=== PATIENT | male | born 1975 | race Hispanic/Latino ===

== ENCOUNTER 2025-05-06 17:19 | Observation (INO) | payer OTHER ==
[~2025-05-06] VITALS: Ht 177.8 cm; Wt 163.3 kg
[2025-05-06 17:47] LABS: BASOPHILS % 0.5 % (0.0-1.0); EOSINOPHILS % 3.5 % (0.0-6.0); LYMPHOCYTES % 24.9 % (18.0-39.1); MONOCYTES % 9.4 % (4.4-11.3); NEUTROPHILS % 61.1 % (38.7-80.0); RED CELL DISTRIBUTION WIDTH 12.3 % (11.7-14.4)
[2025-05-06 18:17] LABS: EST GLOMERULAR FILTRATION RATE 56 ML/MIN (>=60)
[2025-05-06] MEDS: HYDROMORPHONE 1MG/1ML INJ IV STA (18:45)
[2025-05-06 19:08] VITALS: PULSE 92; RESP 16; TEMP 98
[2025-05-06] MEDS: HYDROCODONE/APAP 7.5MG-325MG 1 EA TAB PO ONE (19:11)
[2025-05-06] MEDS ORDERED: ONDANSETRON HCL INJ 2MG/ML 2ML 2 MG/ML VIAL IV PRN (19:15)
[2025-05-06] MEDS ORDERED: HYDROCODONE/APAP 7.5MG-325MG 1 EA TAB PO PRN (19:15)
[2025-05-06] MEDS ORDERED: Morphine 4mg INJECTION 4 MG/ML INJ IV PRN (19:15)
[2025-05-06] MEDS: SODIUM CHLORIDE 0.9% 1000ML 1,000 ML IV SCH (19:40)
[2025-05-06 20:10] VITALS: PULSE 87; RESP 18; O2SAT 97
[2025-05-06 21:19] VITALS: BP 100/72; PULSE 89; RESP 18; TEMP 98.1; O2SAT 98
[2025-05-06 21:20] VITALS: BP 100/72; PULSE 89; RESP 18; TEMP 98.1; O2SAT 98
[2025-05-06 21:30] VITALS: BP 100/72; PULSE 89; RESP 18; TEMP 98.1; O2SAT 98
[2025-05-06] MEDS ORDERED: NALOXONE HCL INJ 0.4 MG/ML AMP IV PRN (22:15)
[2025-05-06] MEDS: HYDROMORPHONE 1MG/1ML INJ IV PRN (22:27)
[2025-05-06] MEDS ORDERED: LEVOTHYROXINE50 MCG PO (22:43)
[2025-05-06] MEDS ORDERED: MOTRIN200 MG PO (22:43)
[2025-05-06 23:06] VITALS: BP 135/87; PULSE 75; RESP 18; TEMP 97.9; O2SAT 98
[2025-05-07 03:27] VITALS: BP 115/76; PULSE 60; RESP 18; TEMP 98.1; O2SAT 100
[2025-05-07 06:26] LABS: BASOPHILS % 0.5 % (0.0-1.0); EOSINOPHILS % 3.2 % (0.0-6.0); LYMPHOCYTES % 29.2 % (18.0-39.1); MONOCYTES % 9.7 % (4.4-11.3); NEUTROPHILS % 56.9 % (38.7-80.0); RED CELL DISTRIBUTION WIDTH 12.6 % (11.7-14.4)
[2025-05-07 06:41] LABS: EST GLOMERULAR FILTRATION RATE 61 ML/MIN (>=60)
[2025-05-07 06:57] VITALS: PULSE 95; RESP 20; O2SAT 95
[2025-05-07 08:00] VITALS: BP 105/66; PULSE 67; RESP 20; TEMP 97.7; O2SAT 100
== END 2025-05-07 11:47 | disposition left against medical advice (07) ==
LOC: ER 17:23 → ERHOLD 19:04 → MED/SURG3 21:05
PROVIDERS: ADMIT Internal Medicine; ATTEND Internal Medicine
DX: R07.89 Other chest pain (principal); Z53.29 Procedure and treatment not carried out because of patient's decision for other reasons; M62.82 Rhabdomyolysis; N17.9 Acute kidney failure, unspecified; R73.9 Hyperglycemia, unspecified; I25.10 Atherosclerotic heart disease of native coronary artery without angina pectoris; E03.9 Hypothyroidism, unspecified; E66.01 Morbid (severe) obesity due to excess calories; Z68.43 Body mass index [BMI] 50.0-59.9, adult; M1A.9XX1 Chronic gout, unspecified, with tophus (tophi); Z96.652 Presence of left artificial knee joint
CPT/HCPCS: 36415 ×2; 71045; 80053 ×2; 82550; 83690; 84484 ×2; 85025 ×2; 93005; 94799 ×2; 99284; G0378 ×2; J1171; J7030 ×2

== ENCOUNTER 2025-06-23 01:29 | Emergency (ER) | payer OTHER ==
[~2025-06-23] VITALS: Ht 177.8 cm; Wt 163.3 kg
[~2025-06-23 01:29] MED LIST: LEVOTHYROXINE50 MCG PO; MOTRIN200 MG PO
[2025-06-23 02:12] LABS: BASOPHILS % 0.5 % (0.0-1.0); EOSINOPHILS % 2.5 % (0.0-6.0); LYMPHOCYTES % 31.9 % (18.0-39.1); MONOCYTES % 9.5 % (4.4-11.3); NEUTROPHILS % 55.1 % (38.7-80.0); RED CELL DISTRIBUTION WIDTH 12.8 % (11.7-14.4)
[2025-06-23 02:33] LABS: EST GLOMERULAR FILTRATION RATE 50.0 ML/MIN (>=60)
[2025-06-23] MEDS: DICYCLOMINE HCL 20 MG/2 ML VIAL IM ONE (02:45)
[2025-06-23 04:49] VITALS: PULSE 63; RESP 16; TEMP 98.5; O2SAT 95
[2025-06-23] MEDS ORDERED: ONDANSETRON ODT4 MG SL (04:49)
[2025-06-23] MEDS ORDERED: PANTOPRAZOLE SO40 MG PO (04:49)
[2025-06-23] MEDS ORDERED: DICYCLOMINE HCL20 MG PO (04:49)
== END 2025-06-23 05:34 | disposition home or self-care (01) ==
LOC: ER 01:57
DX: R10.11 Right upper quadrant pain (principal); K80.20 Calculus of gallbladder without cholecystitis without obstruction; K80.50 Calculus of bile duct without cholangitis or cholecystitis without obstruction; I25.10 Atherosclerotic heart disease of native coronary artery without angina pectoris; E78.5 Hyperlipidemia, unspecified; K74.60 Unspecified cirrhosis of liver; E03.9 Hypothyroidism, unspecified; M54.9 Dorsalgia, unspecified; G89.29 Other chronic pain; G47.30 Sleep apnea, unspecified; M10.9 Gout, unspecified; H91.92 Unspecified hearing loss, left ear; E66.9 Obesity, unspecified; I25.2 Old myocardial infarction; Z87.442 Personal history of urinary calculi; Z96.652 Presence of left artificial knee joint
CPT/HCPCS: 36415; 76705; 80053; 82550; 83690; 84484; 85025; 93005; 99284; J0500; J2470